=== PATIENT | male | born 1930 | race Caucasian/White ===

== ENCOUNTER 2018-07-12 07:48 | Day surgery (SDC) | payer MEDICAID ==
[~2018-07-12] VITALS: Ht 160 cm; Wt 72.6 kg
[~2018-07-12 07:48] MED LIST: FINA5TAB11 PO; LACTATED RINGERS 1,000 ML IV SCH; TAMS0.4C31 PO
[2018-07-12] MEDS ORDERED: NORMAL SALINE 0.9% 10 ML SYR ONE (09:09)
[2018-07-12] MEDS ORDERED: LIDOCAINE HCL 1% 20ML VIAL (Pyxis) INJ ONE (09:09)
[2018-07-12] MEDS ORDERED: BUPIVACAINE HCL/PF 0.5% (5MG/ML) 10ML ONE (09:09)
[2018-07-12] MEDS ORDERED: BACITRACIN 50,000 UNITS/VIAL ONE (09:09)
[2018-07-12] MEDS ORDERED: SKIN ADHESIVE 0.7 GM EA TOP ONE (09:13)
[2018-07-12] MEDS ORDERED: ROCURONIUM BROMIDE 10MG/ML VIAL 5ML IV ONE (10:00)
== END 2018-07-12 14:30 | disposition home or self-care (01) ==
LOC: OR 07:48
PROVIDERS: ATTEND Specialist
DX: K40.31 Unilateral inguinal hernia, with obstruction, without gangrene, recurrent (principal); K66.0 Peritoneal adhesions (postprocedural) (postinfection); N40.0 Benign prostatic hyperplasia without lower urinary tract symptoms; Z79.899 Other long term (current) drug therapy; Z98.890 Other specified postprocedural states
CPT/HCPCS: 49507; 88302; 88305; C1781; G0168; J3490